=== PATIENT | male | born 1950 | race African-American/Black ===

== ENCOUNTER 2017-06-27 12:33 | Emergency (ER) | payer MEDICARE, MEDICAID ==
[2017-06-27 13:15] LABS: Bilirubin Negative (Negative); Blood, Urine Negative (Negative); Clarity Clear (Clear); Glucose, Urine (Dipstick) Negative (Negative); Leukocyte Negative (Negative); Nitrite Negative (Negative); Protein, Urine (Dipstick) Negative (Neg-Trace); Specific Gravity, Urine 1.025 (1.005-1.030); Urobilinogen 0.2 mg/dL (0.2-1.0); pH, Urine 6.5 (5.0-9.0)
--- NOTE | 2017-06-27 17:21 | RAD ---
CHEST TWO VIEWS 06/27/17 Comparison is made with the 06/03/16 study. The heart remains normal in size and the lungs are clear. No infiltrate or effusion was seen. There is no vascular congestion, edema, or pleural effusion. Some degenerative changes are seen in the mid thoracic spine. The trachea is midline. IMPRESSION: No acute thoracic finding. POS: HOME
== END 2017-06-27 13:44 | disposition home or self-care (01) ==
LOC: BURERS 12:33
DX: J44.9 Chronic obstructive pulmonary disease, unspecified (principal); R35.0 Frequency of micturition; R07.81 Pleurodynia; E11.9 Type 2 diabetes mellitus without complications; F17.210 Nicotine dependence, cigarettes, uncomplicated
CPT/HCPCS: 36416; 71020; 81003

== ENCOUNTER 2018-05-01 18:14 | Emergency (ER) | payer MEDICARE, MEDICAID | END 2018-05-01 18:29 | disposition home or self-care (01) | LOC: BURERS 18:14 | DX: J44.9 Chronic obstructive pulmonary disease, unspecified (principal); F17.210 Nicotine dependence, cigarettes, uncomplicated; Z79.899 Other long term (current) drug therapy | CPT/HCPCS: 99284 ==

== ENCOUNTER 2018-08-24 15:08 | Emergency (ER) | payer MEDICARE, MEDICAID | END 2018-08-24 15:20 | disposition home or self-care (01) | LOC: BURERS 15:08 | DX: J44.1 Chronic obstructive pulmonary disease with (acute) exacerbation (principal); J45.909 Unspecified asthma, uncomplicated; F17.210 Nicotine dependence, cigarettes, uncomplicated; Z79.51 Long term (current) use of inhaled steroids | CPT/HCPCS: 99284 ==

== ENCOUNTER 2018-09-16 12:36 | Emergency (ER) | payer MEDICARE, MEDICAID ==
[2018-09-16 13:20] LABS: ALT (SGPT) 132 U/L (8-55); AST (SGOT) 123 U/L (5-34); Albumin 3.5 g/dL (3.4-4.8); Alkaline Phosphatase 138 U/L (40-150); Anion Gap 11 mmol/L (10-20); BUN (Urea Nitrogen) 9 mg/dL (8.4-25.7); Bilirubin, Total 0.7 mg/dL (0.2-1.2); Calc. Creatinine Clearance 0 mL/min (70-130); Calcium 9.2 mg/dL (7.8-10.44); Carbon Dioxide 31 mmol/L (23-31); Chloride 102 mmol/L (98-107); Estimated GFR-MDRD 66; Globulin 4.3 g/dL (2.4-3.5); Glucose 137 mg/dL (80-115); Potassium 3.9 mmol/L (3.5-5.1); Protein, Total 7.8 g/dL (5.8-8.1); Sodium 140 mmol/L (136-145)
[2018-09-16 13:41] LABS: Eosinophils 1 % (0-10); Hemoglobin 13.6 g/dL (14.0-18.0); Hypochromia MODERATE=16-30 cells (100X) (0-5/hpf); Lymphocytes 26 % (21-51); MDiff Complete? YES; Mean Corpuscular Hemoglobin 23.2 pg (27.0-31.0); Mean Corpuscular Volume 77.2 fL (78.0-98.0); Mean Platelet Volume 8.1 fL (7.4-10.4); Microcytosis SLIGHT = 6-15 cells (100X) (0-5/hpf); Monocytes 21 % (0-10); Neutrophil 52 % (42-75); Platelet Count 129 thou/uL (130-400); RBC Distribution Width 14.4 % (11.5-14.5); Red Blood Cell (RBC) Count 5.84 mill/uL (4.70-6.10); Target Cells SLIGHT = 2-5 cells (100X) (0-1/hpf)
[2018-09-16 13:43] LABS: Bilirubin Negative (Negative); Blood, Urine Negative (Negative); Clarity Slightly Cloudy (Clear); Glucose, Urine (Dipstick) Negative (Negative); Leukocyte Negative (Negative); Nitrite Negative (Negative); Protein, Urine (Dipstick) Negative (Neg-Trace)
[2018-09-16] MEDS ORDERED: predniSONE 20 MG TAB ONE ×2 (13:46→13:49)
[2018-09-16] MEDS ORDERED: Benzonatate 100 MG CAP ONE (13:46)
--- NOTE | 2018-09-16 16:34 | RAD ---
CHEST TWO VIEWS: 09/16/18 HISTORY: Cough. COMPARISON: 06/27/17. FINDINGS: the cardiac silhouette and pulmonary vasculature are unremarkable. Mediastinum is midline. Lungs eva in hyperinflated. No confluent air space consolidation, pneumothorax or pleural fluid are evident. IMPRESSION: No active cardiopulmonary abnormalities are demonstrated. POS: [facility]
== END 2018-09-16 14:04 | disposition home or self-care (01) ==
LOC: BURERS 12:36
DX: J44.9 Chronic obstructive pulmonary disease, unspecified (principal); F17.210 Nicotine dependence, cigarettes, uncomplicated; Z79.51 Long term (current) use of inhaled steroids
CPT/HCPCS: 36415; 71046; 80053; 81003; 83880; 84484; 85025; 93005; J7506; J7620

== ENCOUNTER 2018-11-18 08:02 | Emergency (ER) | payer MEDICARE, MEDICAID ==
[2018-11-18] MEDS ORDERED: methylPREDNISolone Sod Succ/PF 125 MG/2 ML VIAL ONE (08:30)
[2018-11-18 08:55] LABS: #Basophils 0.1 thou/uL (0.0-0.2); #Eosinphils 0.1 thou/uL (0.0-0.7); #Monocytes 0.8 thou/uL (0.11-0.59); #Neutrophils 4.7 thou/uL (1.40-6.50); %Basophils 1.9 % (0.0-1.0); %Eosinophils 1.3 % (0.0-10.0); %Lymphocytes 15.3 % (21.0-51.0); %Monocytes 12.4 % (0.0-10.0); %Neutrophils 69.2 % (42.0-75.0); Hemoglobin 13.6 g/dL (14.0-18.0); Mean Corpuscular Hemoglobin 23.4 pg (27.0-31.0); Mean Corpuscular Volume 80.8 fL (78.0-98.0); Mean Platelet Volume 9.1 fL (7.4-10.4); Platelet Count 145 thou/uL (130-400); RBC Distribution Width 15.4 % (11.5-14.5); Red Blood Cell (RBC) Count 5.78 mill/uL (4.70-6.10); White Blood Cell (WBC) Count 6.8 thou/uL (4.8-10.8)
[2018-11-18 08:57] LABS: ALT (SGPT) 157 U/L (8-55); AST (SGOT) 133 U/L (5-34); Albumin 3.7 g/dL (3.4-4.8); Alkaline Phosphatase 181 U/L (40-150); Anion Gap 13 mmol/L (10-20); BUN (Urea Nitrogen) 11 mg/dL (8.4-25.7); Bilirubin, Total 1.2 mg/dL (0.2-1.2); Calc. Creatinine Clearance 0 mL/min (70-130); Calcium 9.6 mg/dL (7.8-10.44); Carbon Dioxide 30 mmol/L (23-31); Chloride 102 mmol/L (98-107); Estimated GFR-MDRD 84; Globulin 4.4 g/dL (2.4-3.5); Glucose 143 mg/dL (80-115); Potassium 4.5 mmol/L (3.5-5.1); Protein, Total 8.1 g/dL (5.8-8.1); Sodium 140 mmol/L (136-145)
[2018-11-18 09:09] LABS: Platelet Morphology Comment Appears Adequate; RBC Morphology Normal
[2018-11-18 09:23] LABS: Bilirubin Negative (Negative); Blood, Urine Negative (Negative); Clarity Clear (Clear); Glucose, Urine (Dipstick) Negative (Negative); Leukocyte Negative (Negative); Nitrite Negative (Negative); Protein, Urine (Dipstick) Negative (Neg-Trace); pH, Urine 6.5 (5.0-9.0)
--- NOTE | 2018-11-18 14:10 | RAD ---
PORTABLE CHEST: Date: 11/18/18 An AP portable film at 0833 hours is compared with the 09/16/18 study. The heart is normal in size and the lungs are clear. No infiltrate, effusion, or vascular congestion seen. The mediastinum appears normal. IMPRESSION: No acute findings. POS: HOME
== END 2018-11-18 09:35 | disposition home or self-care (01) ==
LOC: BURERS 08:02
DX: J44.1 Chronic obstructive pulmonary disease with (acute) exacerbation (principal); F17.210 Nicotine dependence, cigarettes, uncomplicated; Z79.51 Long term (current) use of inhaled steroids
CPT/HCPCS: 71045; 80053; 81003; 84484; 85025; 93005; 94640; 96374; J2930; J7620

== ENCOUNTER 2019-10-29 15:40 | Emergency (ER) | payer MEDICARE, OTHER ==
--- NOTE | 2019-10-29 16:06 | RAD ---
Chest one view HISTORY: Dyspnea. COMPARISON: 08/05/2019. FINDINGS: Cardiac silhouette and pulmonary vasculature are unremarkable. Mediastinum is midline. No c onfluent airspace consolidation or evidence of pneumothorax. surveillance system monitor leads overlie the chest. IMPRESSION: No active cardiopulmonary abnormalities are demonstrated.
[2019-10-29 16:21] LABS: Hemoglobin 9.4 g/dL (14.0-18.0); Mean Corpuscular HGB CONC 29.6 g/dL (32.0-36.0); Mean Corpuscular Hemoglobin 23.4 pg (27.0-31.0); Mean Platelet Volume 12.5 fL (7.4-10.4); Platelet Count 143 thou/uL (130-400); RBC Distribution Width 20.4 % (11.5-14.5); Red Blood Cell (RBC) Count 4.02 mill/uL (4.70-6.10); White Blood Cell (WBC) Count 48.6 thou/uL (4.8-10.8)
[2019-10-29 16:40] LABS: ALT (SGPT) 227 U/L (8-55); AST (SGOT) 364 U/L (5-34); Albumin 2.1 g/dL (3.4-4.8); Alkaline Phosphatase 240 U/L (40-110); Anion Gap 9 mmol/L (10-20); BUN (Urea Nitrogen) 13 mg/dL (8.4-25.7); Bilirubin, Total 4.4 mg/dL (0.2-1.2); Calc. Creatinine Clearance 0 mL/min (70-130); Calcium 8.3 mg/dL (7.8-10.44); Carbon Dioxide 33 mmol/L (23-31); Chloride 101 mmol/L (98-107); Estimated GFR-MDRD 69; Globulin 5.9 g/dL (2.4-3.5); Glucose 89 mg/dL (80-115); Potassium 3.8 mmol/L (3.5-5.1); Sodium 139 mmol/L (136-145)
[2019-10-29 16:47] LABS: Band 5 % (5-11); Eosinophils 2 % (0-10); Lymphocytes 28 % (21-51); MDiff Complete? YES; Metamyelocyte 3 % (0-0); Monocytes 11 % (0-10); Neutrophil 51 % (42-75)
[2019-10-29 17:10] LABS: CO2 Tension (PvCO2) 59.3 mmHg (40.0-50.0)
[2019-10-29 17:11] LABS: Base Excess-Venous 6.9 mmol/L (-2.0 to 3.0); Chloride 98 mmol/L (98-107); Hemoglobin - Calc 12.2 g/dL (14.0-18.0); Potassium 4.2 mmol/L (3.5-5.1); Sodium 142 mmol/L (138-145); vO2 Saturation-calc 81.4 % (60.0-85.0)
[2019-10-29 17:12] LABS: Calcium, Ionized 1.17 mmol/L (See Comments:); T. Carbon Dioxide 35.8 mmol/L (22.0-28.0)
[2019-10-29] MEDS ORDERED: Albuterol Sulfate 2.5 mg/0.5 ml Neb ONE (17:30)
[2019-10-29 17:36] LABS: INR-International Normal Ratio 1.3; PTT 33.4 SEC (22.9-36.1); Prothrombin Time 16.2 SEC (12.0-14.7)
[2019-10-29] MEDS ORDERED: methylPREDNISolone Sod Succ/PF 125 MG/2 ML VIAL ONE (18:08)
== END 2019-10-29 19:16 | disposition short-term general hospital (02) ==
LOC: BURERS 15:40
DX: J44.1 Chronic obstructive pulmonary disease with (acute) exacerbation (principal); R79.89 Other specified abnormal findings of blood chemistry; D72.829 Elevated white blood cell count, unspecified; E80.6 Other disorders of bilirubin metabolism; F17.210 Nicotine dependence, cigarettes, uncomplicated
CPT/HCPCS: 71045; 80053; 82140; 82330; 82803; 83605; 83880; 84484; 85025; 85610; 85730; 87040; 93005; 94640; 94760; 96361; 96374; J2930; J7611; J7620

== ENCOUNTER 2020-01-06 15:25 | Emergency (ER) | payer MEDICARE, MEDICAID ==
[2020-01-06 16:20] LABS: ALT (SGPT) 34 U/L (8-55); AST (SGOT) 78 U/L (5-34); Albumin 2.3 g/dL (3.4-4.8); Alkaline Phosphatase 172 U/L (40-110); Anion Gap 11 mmol/L (10-20); BUN (Urea Nitrogen) 10 mg/dL (8.4-25.7); Bilirubin, Total 1.6 mg/dL (0.2-1.2); Calc. Creatinine Clearance 0 mL/min (70-130); Calcium 8.4 mg/dL (7.8-10.44); Carbon Dioxide 28 mmol/L (23-31); Chloride 107 mmol/L (98-107); Estimated GFR-MDRD 70; Globulin 4.7 g/dL (2.4-3.5); Glucose 108 mg/dL (80-115); Potassium 3.3 mmol/L (3.5-5.1); Sodium 143 mmol/L (136-145)
[2020-01-06 16:34] LABS: Band 2 % (5-11); Eosinophils 3 % (0-10); Hemoglobin 9.8 g/dL (14.0-18.0); Hypochromia MODERATE=16-30 cells (100X) (0-5/hpf); Lymphocytes 20 % (21-51); MDiff Complete? YES; Mean Corpuscular HGB CONC 28.9 g/dL (32.0-36.0); Mean Corpuscular Hemoglobin 24.4 pg (27.0-31.0); Mean Corpuscular Volume 84.4 fL (78.0-98.0); Mean Platelet Volume 9.4 fL (7.4-10.4); Microcytosis SLIGHT = 6-15 cells (100X) (0-5/hpf); Monocytes 14 % (0-10); Neutrophil 61 % (42-75); Platelet Count 127 thou/uL (130-400); RBC Distribution Width 16.8 % (11.5-14.5); Red Blood Cell (RBC) Count 4.03 mill/uL (4.70-6.10); Target Cells MODERATE= 6-15 cells (100X) (0-1/hpf)
[2020-01-06 16:44] LABS: Manual Diff?? YES; White Blood Cell (WBC) Count 18.9 thou/uL (4.8-10.8)
[2020-01-06] MEDS ORDERED: Magnesium 2 GM/50 ML BAG (IN WATER) ONE (16:57)
[2020-01-06] MEDS ORDERED: Potassium Chloride 20 MEQ TAB ONE (16:57)
[2020-01-06] MEDS ORDERED: Albuterol Sulfate 1.25 MG/3 ML NEB ONE (17:25)
[2020-01-06] MEDS ORDERED: methylPREDNISolone Sod Succ/PF 125 MG/2 ML VIAL ONE (18:12)
[2020-01-06] MEDS ORDERED: Dextrose 50% Abboject 50 ML SYRINGE ONE (18:18)
[2020-01-06] MEDS ORDERED: Insulin Regular 300 UNITS/3 ML VIAL ONE (18:18)
--- NOTE | 2020-01-06 18:36 | RAD ---
PORTABLE CHEST: 12/27/19 An AP portable film done at 1602 is compared with a 10/29/2019 study. The heart is normal in size and the lungs are clear. No infiltrate, effusion, or vascular congestion was seen. The mediastinum appears normal. IMPRESSION: No acute thoracic findings. POS: HOME
== END 2020-01-06 18:22 | disposition short-term general hospital (02) ==
LOC: BURERS 15:25
DX: J44.1 Chronic obstructive pulmonary disease with (acute) exacerbation (principal); R18.8 Other ascites; E87.6 Hypokalemia; N40.0 Benign prostatic hyperplasia without lower urinary tract symptoms; B19.10 Unspecified viral hepatitis B without hepatic coma; Z87.891 Personal history of nicotine dependence; Z79.899 Other long term (current) drug therapy
CPT/HCPCS: 71045; 80053; 82140; 83880; 84484; 85025; 93005; 94640; 94760; 96365; 96375; J1815; J2930; J3475; J7620